=== PATIENT | female | born 1965 | race Caucasian/White ===

== ENCOUNTER 2019-04-08 18:56 | Inpatient (IN) ==
[2019-04-08 19:34] LABS: Basophils % 0.4 %; Hematocrit 39.6 % (35.3-44.9); Hemoglobin 13.5 g/dL (11.5-15.4); Immature Granulocytes % 0.3 % (0-4); Lymphocytes # 2.3 K/mcL (0.6-4.6); Lymphocytes % 21.6 %; Mean Corpuscular HGB Conc 34.1 g/dL (31.6-35.5); Mean Corpuscular Volume 90.8 fL (83.0-100.0); Monocytes # 0.7 K/mcL (0.0-1.3); Monocytes % 6.1 %; Neutrophils # 7.7 K/mcL (1.6-8.9); Platelet Count 266 K/mcL (140-400); Red Blood Count 4.36 M/mcL (3.82-4.97); Red Cell Distribution Width 13.2 % (11.5-14.5); Segmented Neutrophils % 71.6 %; White Blood Count 10.8 K/mcL (4.3-11.1)
[2019-04-08 19:51] LABS: Acetaminophen < 10 mcg/mL (10-20); BUN/Creatinine Ratio 14 (6-26); Blood Urea Nitrogen 13 mg/dL (6-20); Calcium 9.9 mg/dL (8.6-10.3); Carbon Dioxide 29 mEq/L (23-29); Chloride 106 mEq/L (98-107); Ethanol < 10 mg/dL (Less than 10); Glucose 137 mg/dL (70-105); Osmolality,Calculated 292 (280-300); Potassium 3.7 mEq/L (3.5-5.1); Salicylate < 2.5 mg/dL (15.0-30.0); Sodium 140 mEq/L (136-145); eGFR For African Americans > 60 (> 60); eGFR For Non-African Americans > 60 (> 60)
[2019-04-08 20:40] LABS: Bilirubin,Urine Negative (Negative); Blood,Urine Negative (Negative); Clarity,Urine Clear (Clear); Color,Urine Yellow (Yellow); Glucose,Urine (UA) Normal (Normal); Ketones,Urine Negative (Negative); Leukocyte Esterase,Urine Negative (Negative); Nitrite,Urine Negative (Negative); PH,Urine 5.5 pH Units (5.0-8.0); Protein,Urine Negative (Neg-Trace); Specific Gravity,Urine 1.015 (1.010-1.025); Urobilinogen,Urine Normal (Normal)
[2019-04-08 20:48] LABS: Amphetamine Screen,Urine Negative ng/mL (Cutoff=1000); Barbiturate Screen,Urine Negative ng/mL (Cutoff=200); Benzodiazepines Screen,Urine Negative ng/mL (Cutoff=200); Cannabinoid Screen,Urine Negative ng/mL (Cutoff = 50); Cocaine Screen,Urine Negative ng/mL (Cutoff= 300); Opiate Screen,Urine Negative ng/mL (Cutoff=300); Phencyclidine Screen,Urine Negative ng/mL (Cutoff=25)
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
[2019-04-08] MEDS ORDERED: *HR* LORazepam 2 MG/ML VIAL IM PRN (23:06)
[2019-04-08] MEDS ORDERED: Mag Hydrox/Al Hydrox/Simeth 30 ML UDC PO PRN (23:06)
[2019-04-08] MEDS ORDERED: *HR* LORazepam 1 MG TABLET PO PRN (23:06)
[2019-04-08] MEDS ORDERED: Haloperidol Lactate 5 MG/ML VIAL IM PRN (23:06)
[2019-04-08] MEDS ORDERED: MOM Conc 10 ML UD.LIQ PO PRN (23:06)
[2019-04-08] MEDS ORDERED: Acetaminophen 325 MG TABLET PO PRN (23:06)
[2019-04-09] MEDS: hydrOXYzine pamoate 25 MG CAPSULE PO PRN ×2 (02:48→21:15)
[2019-04-09] MEDS: traZODone 50 MG TABLET PO PRN ×2 (02:48→21:15)
[2019-04-09] MEDS ORDERED: *HR* LORazepam Oral Conc 2 MG/ML PO SCH (10:15)
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
[2019-04-09] MEDS: *HR* LORazepam 1 MG TABLET PO SCH ×3 (11:13→21:15)
[2019-04-09 14:32] LABS: Estimated Average Glucose 126 mg/dl
[2019-04-09] MEDS: cloZAPine 100 MG TABLET PO SCH (21:15)
[2019-04-10] MEDS: *HR* LORazepam 1 MG TABLET PO SCH ×3 (08:57→20:56)
[2019-04-10] MEDS: (Valbenazine Tosylate [Ingrezza] 80 MG) PO SCH (09:00)
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
[2019-04-10] MEDS: cloZAPine 100 MG TABLET PO SCH (21:18)
[2019-04-11] MEDS: *HR* LORazepam 1 MG TABLET PO SCH ×3 (09:23→22:15)
[2019-04-11] MEDS: (Valbenazine Tosylate [Ingrezza] 80 MG) PO SCH (09:23)
--- NOTE | 2019-04-11 09:34 | Psychiatry Progress Note ---
Date of Encounter: 04/11/19 Time of Encounter: 08:40 Subjective Interval history: Patient continues to be very psychotic and confused. She continues to think that there are fires on around her and that her life is in danger. She is paranoid and watchful. She is responding to internal stimuli. She is not caring for her ADLs. She needs encouragement to eat. After each dose of Ativan she does have a slight improvement though it then wanes as the Ativan goes out of her system. She is tolerating clozapine. No further falls. Review of Systems Psychiatric: Reports: anxiety, abnormal sleep pattern, auditory hallucinations, visual hallucinations. Denies: suicidal ideation, homicidal ideation, anhedonia Results - Vital Signs Vital Signs: Temp Pulse Resp BP Pulse Ox 97.9 F 92 14 96/64 95 04/11/19 09:00 04/11/19 09:00 04/11/19 09:00 04/11/19 09:00 04/11/19 09:00 Assessment and Plan (1) Schizophrenia Current visit: Yes Status: Acute Plan: Continue hospitalization, Close observation, Suicide Precautions per unit protocol, Encourage participation in unit milieu, Group Therapy, Monitor sleep, Monitor appetite Additional Plan: Continue current medications. Consider increase in Ativan given that she still has catatonic symptoms in the seemed to get worse as the Ativan wears off. Encourage group attendance. 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 You have an appointment scheduled for Monday, April 22, 2019 at 2:[address] Vy Pacheco for medication management. Please contact the office at least 24 hours in advance if you are unable to keep your appointment(s). ) Ruddy Hernandez MD [Partnered Physician] - Psychiatry Exam - Constitutional Vitals: Temp Pulse Resp BP Pulse Ox 97.9 F 92 14 96/64 95 04/11/19 09:00 04/11/19 09:00 04/11/19 09:00 04/11/19 09:00 04/11/19 09:00 General appearance: age & developmentally appropriate, disheveled - Musculoskeletal Gait: slow Station: stooped Strength & Tone: mild weakness - Psychiatric Patient Orientation: Yes Person, Yes Time, Yes Place Level of alertness: Alert Behavior: guarded, suspicious, withdrawn Psychomotor activity: Slowed Eye Contact: Minimal Contact Mood Description: Anxious Patient description of mood: "I do not know Affect description: flat Speech Volume: Soft/Quiet, Whispering Speech pattern: slowed, limited, impoverished, monotone Language & Vocabulary: consistent with education Thought Process: Thought Blocking Thought Content: Yes Paranoid delusion Perceptual Disturbances: Yes Auditory hallucinations, Yes Visual hallucinations Attention Span Ability: Unable to Focus, Unable to Sustain Attention Memory Description: Immediate Impaired, Recent Intact, Remote Intact Patient Reliability: Questionable Historian Fund of knowledge: Yes average Intelligence Estimate: Average Judgment: Limited Insight: Minimal
[2019-04-11] MEDS: cloZAPine 100 MG TABLET PO SCH (22:16)
[2019-04-12] MEDS: *HR* LORazepam 1 MG TABLET PO SCH ×3 (07:44→20:57)
[2019-04-12] MEDS: (Valbenazine Tosylate [Ingrezza] 80 MG) PO SCH (09:05)
--- NOTE | 2019-04-12 09:28 | Psychiatry Progress Note ---
Date of Encounter: 04/12/19 Time of Encounter: 08:40 Subjective Interval history: Patient is slightly less delayed in her responses and has less posturing since her Ativan. She continues to be paranoid and psychotic. She continues to not care for her ADLs. She requires encouragement. She is tolerating medications. She is attending some groups though not participating. Now that some of the posturing from the catatonia is improving it has become apparent that she does have tardive dyskinesia for which she is being treated with resident. Her primary symptoms seem to be around truncal movements in her shoulders which I would rate as 3 moderate her overall abnormality of movements is 2 mild incapacitation is 0, patient's awareness is 2 she is aware with only mild distress this gives her an overall score of 6 Review of Systems Psychiatric: Reports: anxiety, abnormal sleep pattern, auditory hallucinations, visual hallucinations. Denies: suicidal ideation, homicidal ideation, anhedonia Results - Vital Signs Vital Signs: Temp Pulse Resp BP Pulse Ox 98.8 F 90 16 102/71 99 04/11/19 20:02 04/11/19 20:02 04/11/19 20:02 04/11/19 20:02 04/11/19 20:02 Assessment and Plan (1) Schizophrenia Current visit: Yes Status: Acute Plan: Continue hospitalization, Close observation, Suicide Precautions per unit protocol, Encourage participation in unit milieu, Group Therapy, Monitor sleep, Monitor appetite Additional Plan: Patient does have some tardive dyskinesia which is being addressed with anger as a. Antipsychotics to cause tardive dyskinesia however in this case her need for the medications outweighs the risk of worsening tardive dyskinesia. Additionally cause a pain is the medication of choice for an antipsychotic when the patient has tardive dyskinesia so this is good that she is arty on it. We will continue current dose. If she does not continue to improve may need to increase this. Continue Ativan for the time being. As catatonia improved as he may be able to decrease this. 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 You have an appointment scheduled for Monday, April 22, 2019 at 2:[address] Vy Pacheco for medication management. Please contact the office at least 24 hours in advance if you are unable to keep your appointment(s). ) Rdudy Hernandez MD [Partnered Physician] - Psychiatry Exam - Constitutional Vitals: Temp Pulse Resp BP Pulse Ox 98.8 F 90 16 102/71 99 04/11/19 20:02 04/11/19 20:02 04/11/19 20:02 04/11/19 20:02 04/11/19 20:02 General appearance: age & developmentally appropriate, disheveled - Musculoskeletal Gait: slow Station: posturing (Last) Strength & Tone: other (Truncal tardive dyskinesia) - Psychiatric Patient Orientation: Yes Person, Yes Time, Yes Place Level of alertness: Alert Behavior: guarded, withdrawn Psychomotor activity: Catatonic (Improving) Eye Contact: Fleeting Contact Mood Description: Depressed Patient description of mood: Sad Affect description: flat Speech Volume: Whispering Speech pattern: limited, impoverished, other (Delayed) Language & Vocabulary: consistent with education Thought Process: Thought Blocking Thought Content: Yes Paranoid delusion Perceptual Disturbances: Yes Auditory hallucinations, Yes Visual hallucinations Attention Span Ability: Unable to Focus, Unable to Sustain Attention Memory Description: Immediate Impaired, Recent Intact, Remote Intact Patient Reliability: Questionable Historian Fund of knowledge: Yes average Intelligence Estimate: Average Judgment: Poor Insight: None
[2019-04-12] MEDS: hydrOXYzine pamoate 25 MG CAPSULE PO PRN (20:55)
[2019-04-12] MEDS: cloZAPine 100 MG TABLET PO SCH (20:55)
[2019-04-12] MEDS: traZODone 50 MG TABLET PO PRN (20:55)
[2019-04-13] MEDS: (Valbenazine Tosylate [Ingrezza] 80 MG) PO SCH (08:02)
[2019-04-13] MEDS: *HR* LORazepam 1 MG TABLET PO SCH (08:03)
--- NOTE | 2019-04-13 11:04 | Psychiatry Progress Note ---
Date of Encounter: 04/13/19 Time of Encounter: 09:40 Subjective Interval history: Patient is no longer having delusions about things being on fire but she continues to have auditory hallucinations which tell her she is going to hell. She is still somewhat slowed in her responses but much better than when she first arrived. She has stiffness in her neck and some cogwheeling in her upper extremities. Her truncal tardive dyskinesia is worse since her and grandson has apparently not been given although her family did not bring it in apparently nursing took it to the pharmacy instead of putting into her mental box. She is eating and her hygiene is improving. She is still withdrawn. Review of Systems Psychiatric: Reports: anxiety, abnormal sleep pattern, auditory hallucinations, visual hallucinations. Denies: suicidal ideation, homicidal ideation, anhedonia Results - Vital Signs Vital Signs: Temp Pulse Resp BP Pulse Ox 96.3 F L 90 14 100/71 98 04/13/19 09:00 04/13/19 09:00 04/13/19 09:00 04/13/19 09:00 04/13/19 09:00 Assessment and Plan (1) Schizophrenia Current visit: Yes Status: Acute Plan: Continue hospitalization, Close observation, Suicide Precautions per unit protocol, Encourage participation in unit milieu, Group Therapy, Monitor sleep, Monitor appetite Additional Plan: Her catatonic symptoms have improved slightly and she is having some sedation with Ativan so we will decrease this to 0.5 mg by mouth 3 times a day. She does have some cogwheeling so will schedule Cogentin 1 mg by mouth twice a day. She will now start getting her anger is a to help with the tardive dyskinesia symptoms. 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 You have an appointment scheduled for Monday, April 22, 2019 at 2:[address] Vy Pacheco for medication management. Please contact the office at least 24 hours in advance if you are unable to keep your appointment(s). ) Ruddy Hernandez MD [Partnered Physician] - Psychiatry Exam - Constitutional Vitals: Temp Pulse Resp BP Pulse Ox 96.3 F L 90 14 100/71 98 04/13/19 09:00 04/13/19 09:00 04/13/19 09:00 04/13/19 09:00 04/13/19 09:00 General appearance: age & developmentally appropriate, disheveled - Musculoskeletal Gait: slow, shuffling Station: stooped Strength & Tone: mild weakness, cog wheel - Psychiatric Patient Orientation: Yes Person, Yes Time, Yes Place, Yes Circumstance Level of alertness: Alert Behavior: guarded, suspicious, withdrawn Psychomotor activity: Abnormal movements Eye Contact: Minimal Contact Mood Description: Depressed Patient description of mood: Better Affect description: blunted Speech Volume: Soft/Quiet Speech pattern: impoverished Language & Vocabulary: consistent with education Thought Process: Thought Blocking Thought Content: No Suicidal ideation, No Homicidal ideation, Yes Paranoid delusion Perceptual Disturbances: Yes Auditory hallucinations, Yes Visual hallucinations Attention Span Ability: Unable to Focus, Unable to Sustain Attention Memory Description: Grossly Intact Patient Reliability: Reliable Historian Fund of knowledge: Yes abstraction ability, Yes aware of current events Intelligence Estimate: Average Judgment: Limited Insight: Minimal
[2019-04-13] MEDS: *HR* LORazepam 0.5 MG TABLET PO SCH ×2 (15:05→20:44)
[2019-04-13] MEDS: cloZAPine 100 MG TABLET PO SCH (20:18)
[2019-04-13] MEDS: traZODone 50 MG TABLET PO PRN (20:43)
[2019-04-14] MEDS: *HR* LORazepam 0.5 MG TABLET PO SCH ×3 (08:47→20:38)
[2019-04-14] MEDS: (Valbenazine Tosylate [Ingrezza] 80 MG) PO SCH (08:50)
[2019-04-14] MEDS: cloZAPine 100 MG TABLET PO SCH (20:38)
[2019-04-14] MEDS: traZODone 50 MG TABLET PO PRN (20:38)
[2019-04-14] MEDS: hydrOXYzine pamoate 25 MG CAPSULE PO PRN (20:38)
--- NOTE | 2019-04-15 07:51 | Psychiatry Progress Note ---
Date of Encounter: 04/14/19 Time of Encounter: 12:00 Subjective Interval history: Patient continues to report auditory hallucinations telling her that she should go to hell, that she should , and that there is fire. She is having some suicidal ideations that it better to be than to live like this. She tolerated decrease Ativan. She does try to go to groups though appears distractible. She is caring for her hygiene better and is eating better. Review of Systems Psychiatric: Reports: anxiety, abnormal sleep pattern, suicidal ideation, auditory hallucinations, visual hallucinations. Denies: homicidal ideation, anhedonia Results - Vital Signs Vital Signs: Temp Pulse Resp BP Pulse Ox 97.8 F 85 16 122/92 99 04/14/19 21:00 04/14/19 21:04/14/19 21:04/14/19 21:04/14/19 21:00 Assessment and Plan (1) Schizophrenia Current visit: Yes Status: Acute Plan: Continue hospitalization, Close observation, Suicide Precautions per unit protocol, Encourage participation in unit milieu, Group Therapy, Monitor sleep, Monitor appetite Additional Plan: Resident attempted to call her mother with no answer. We will continue to try reaching out to family. Will add Cogentin 1 twice a day for her stiffness and increased clozapine by an additional 25 every morning. Encourage group attendance. 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 You have an appointment scheduled for Monday, April 22, 2019 at 2:[address] Vy Pacheco for medication management. Please contact the office at least 24 hours in advance if you are unable to keep your appointment(s). ) Ruddy Hernandez MD [Partnered Physician] - Psychiatry Exam - Constitutional Vitals: Temp Pulse Resp BP Pulse Ox 97.8 F 85 16 122/92 99 04/14/19 21:00 04/14/19 21:04/14/19 21:00 04/14/19 21:00 04/14/19 21:00 General appearance: disheveled, thin - Musculoskeletal Gait: slow Station: stooped Strength & Tone: normal for patient - Psychiatric Patient Orientation: Yes Person, Yes Time, Yes Place, Yes Circumstance Level of alertness: Alert Behavior: restless, withdrawn Psychomotor activity: Slowed Eye Contact: Minimal Contact Mood Description: Depressed, Anxious Patient description of mood: Scared Affect description: flat Speech Volume: Soft/Quiet Speech pattern: slowed, impoverished Language & Vocabulary: consistent with education Thought Process: Thought Blocking Thought Content: Yes Suicidal ideation, Yes Preoccupation, Yes Paranoid delusion Perceptual Disturbances: Yes Auditory hallucinations, Yes Visual hallucinations Attention Span Ability: Unable to Focus, Unable to Sustain Attention Memory Description: Grossly Intact Patient Reliability: Reliable Historian Fund of knowledge: Yes abstraction ability, Yes aware of current events Intelligence Estimate: Average Judgment: Limited Insight: Minimal
--- NOTE | 2019-04-15 07:53 | Psychiatry Progress Note ---
Date of Encounter: 04/15/19 Time of Encounter: 07:30 Subjective Interval history: Patient tolerated increase clozapine. Her stiffness is less. We will consider further decreasing Ativan tomorrow. She continues to have paranoia about fires. She now thinks he might purifiers of help. She continues to have auditory hallucinations telling her to go down that she should kill herself. She is more interactive in groups with somewhat less thought blocking though still is delayed in her responses. Review of Systems Psychiatric: Reports: anxiety, abnormal sleep pattern, suicidal ideation, auditory hallucinations, visual hallucinations. Denies: homicidal ideation, anhedonia Results - Vital Signs Vital Signs: Temp Pulse Resp BP Pulse Ox 97.8 F 85 16 122/92 99 04/14/19 21:00 04/14/19 21:04/14/19 21:00 04/14/19 21:00 04/14/19 21:00 Assessment and Plan (1) Schizophrenia Current visit: Yes Status: Acute Plan: Continue hospitalization, Close observation, Suicide Precautions per unit protocol, Encourage participation in unit milieu, Group Therapy, Monitor sleep, Monitor appetite Additional Plan: Sitter further increase clozapine tomorrow, encourage group attendance, consider decrease Ativan tomorrow. 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 You have an appointment scheduled for Monday, April 22, 2019 at 2:[address] Vy Pacheco for medication management. Please contact the office at least 24 hours in advance if you are unable to keep your appointment(s). ) Ruddy Hernandez MD [Partnered Physician] - Psychiatry Exam - Constitutional Vitals: Temp Pulse Resp BP Pulse Ox 97.8 F 85 16 122/92 99 04/14/19 21:00 04/14/19 21:00 04/14/19 21:04/14/19 21:04/14/19 21:00 General appearance: age & developmentally appropriate, disheveled, thin - Musculoskeletal Gait: slow Station: stooped Strength & Tone: mild weakness - Psychiatric Patient Orientation: Yes Person, Yes Time, Yes Place, Yes Circumstance Level of alertness: Alert Behavior: suspicious, withdrawn Psychomotor activity: Slowed Eye Contact: Minimal Contact Mood Description: Depressed Patient description of mood: Sad Affect description: flat Speech Volume: Soft/Quiet Speech pattern: slowed, impoverished Language & Vocabulary: consistent with education Thought Process: Thought Blocking Thought Content: Yes Suicidal ideation, Yes Preoccupation, Yes Paranoid delusion Perceptual Disturbances: Yes Auditory hallucinations, Yes Visual hallucinations Attention Span Ability: Unable to Focus, Unable to Sustain Attention Memory Description: Grossly Intact Patient Reliability: Reliable Historian Fund of knowledge: Yes abstraction ability, Yes aware of current events Intelligence Estimate: Average Judgment: Limited Insight: Minimal
[2019-04-15] MEDS: (Valbenazine Tosylate [Ingrezza] 80 MG) PO SCH (09:11)
[2019-04-15] MEDS: cloZAPine 25 MG TABLET PO SCH (09:11)
[2019-04-15] MEDS: *HR* LORazepam 0.5 MG TABLET PO SCH ×3 (09:11→21:46)
[2019-04-15] MEDS: hydrOXYzine pamoate 25 MG CAPSULE PO PRN (21:46)
[2019-04-15] MEDS: traZODone 50 MG TABLET PO PRN (21:46)
[2019-04-15] MEDS: cloZAPine 100 MG TABLET PO SCH (21:46)
[2019-04-16] MEDS: *HR* LORazepam 0.5 MG TABLET PO SCH ×3 (08:31→20:46)
[2019-04-16] MEDS: cloZAPine 25 MG TABLET PO SCH (08:31)
[2019-04-16] MEDS: (Valbenazine Tosylate [Ingrezza] 80 MG) PO SCH (08:42)
[2019-04-16 12:14] LABS: Basophils % 0.4 %; Hematocrit 39.2 % (35.3-44.9); Hemoglobin 13.1 g/dL (11.5-15.4); Immature Granulocytes % 0.4 % (0-4); Lymphocytes # 1.8 K/mcL (0.6-4.6); Lymphocytes % 15.6 %; Mean Corpuscular HGB Conc 33.4 g/dL (31.6-35.5); Mean Corpuscular Hemoglobin 30.7 pg (28.0-33.3); Mean Corpuscular Volume 91.8 fL (83.0-100.0); Mean Platelet Volume 10.7 fL (9.4-12.4); Monocytes # 0.8 K/mcL (0.0-1.3); Neutrophils # 8.7 K/mcL (1.6-8.9); Platelet Count 277 K/mcL (140-400); Red Blood Count 4.27 M/mcL (3.82-4.97); Red Cell Distribution Width 13.2 % (11.5-14.5); Segmented Neutrophils % 76.6 %; White Blood Count 11.4 K/mcL (4.3-11.1)
--- NOTE | 2019-04-16 12:47 | Psychiatry Progress Note ---
Date of Encounter: 04/16/19 Time of Encounter: 12:42 Subjective Interval history: Client reports she is doing better but still has some paranoia. Thinks other people are talking about her. Has some insight that this is a symptom of her illness but is still bothered by it. Some AH but client feels like AH are just her thoughts that others are talking about her and are not genuine AH. She has some thought blocking but not severe. It seems like this symptom has improved. Pleasant. Denies SI and reports her mood has improved. Attending groups. Eating and sleeping well. Parents supportive but she lives alone. Does not feel ready to go back to her apartment yet. Was hallucinating that her apartment was on fire prior to admission and she is still somewhat focused on this. EPS has improved but still has noticeable side effects to antipsychotic. Will not make any further adjustments today. Likely just needs more time for meds to work. CBC drawn this morning but labs not back yet. Review of Systems Constitutional: Denies: fever, chills, weakness, weight change Eyes: Denies: eye pain, vision change Ears, Nose, Throat: Denies: ear pain, throat pain, dental pain, hearing loss, congestion Cardiovascular: Denies: chest pain, palpitations, dyspnea on exertion Respiratory: Denies: cough, dyspnea, wheezes Gastrointestinal: Denies: abdominal pain, nausea, vomiting, diarrhea, constipation Musculoskeletal: Denies: joint swelling, joint pain Neurological: Denies: headache, weakness, numbness, memory loss Psychiatric: Reports: anxiety, abnormal sleep pattern, suicidal ideation, auditory hallucinations, visual hallucinations. Denies: homicidal ideation, anhedonia Results - Vital Signs Vital Signs: Temp Pulse Resp BP Pulse Ox 98.5 F 106 18 113/78 98 04/16/19 09:00 04/16/19 09:00 04/16/19 09:00 04/16/19 09:00 04/16/19 09:00 - Labs Labs: Laboratory Results - last 24 hr 04/16/19 08:40 WBC 11.4 H RBC 4.27 Hgb 13.1 Hct 39.2 MCV 91.8 MCH 30.7 MCHC 33.4 RDW 13.2 Plt Count 277 MPV 10.7 Immature Gran % 0.4 Seg Neutrophils % 76.6 Lymphocytes % 15.6 Monocytes % 7.0 Eosinophils % 0.0 Basophils % 0.4 Neutrophils # 8.7 Lymphocytes # 1.8 Monocytes # 0.8 Eosinophils # 0.0 Basophils # 0.0 Assessment and Plan (1) Schizophrenia Current visit: Yes Status: Acute Plan: Continue hospitalization, Close observation, Suicide Precautions per unit protocol, Encourage participation in unit milieu, Group Therapy, Monitor sleep, Monitor appetite Risks, benefits, side effects, alternatives discussed w/pt: Yes Patient agreeable to treatment: Yes Qualifiers: 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 You have an appointment scheduled for Monday, April 22, 2019 at 2:[address] Vy Pacheco for medication management. Please contact the office at least 24 hours in advance if you are unable to keep your appointment(s). ) Ruddy Hernandez MD [Partnered Physician] - Psychiatry Exam - Constitutional Vitals: Temp Pulse Resp BP Pulse Ox 98.5 F 106 18 113/78 98 04/16/19 09:00 04/16/19 09:00 04/16/19 09:00 04/16/19 09:00 04/16/19 09:00 General appearance: age & developmentally appropriate, well-groomed, well- nourished - Musculoskeletal Gait: normal Station: relaxed Strength & Tone: normal for patient - Psychiatric Patient Orientation: Yes Person, Yes Time, Yes Place Level of alertness: Alert Behavior: calm, cooperative Psychomotor activity: Increased Eye Contact: Maintains Eye Contact Mood Description: Anxious Affect description: full range Speech Volume: Normal Speech pattern: normal rate, normal rhythm, normal tone, fluent, spontaneous Language & Vocabulary: consistent with education Thought Process: Thought Blocking Thought Content: No Suicidal ideation, No Homicidal ideation, Yes Paranoid delusion Perceptual Disturbances: Yes Auditory hallucinations Attention Span Ability: Capable of Focused Attention Memory Description: Grossly Intact Patient Reliability: Reliable Historian Fund of knowledge: Yes abstraction ability Intelligence Estimate: Average Judgment: Fair Insight: Partial
[2019-04-16] MEDS: cloZAPine 100 MG TABLET PO SCH (20:45)
[2019-04-16] MEDS: hydrOXYzine pamoate 25 MG CAPSULE PO PRN (20:46)
[2019-04-16] MEDS: traZODone 50 MG TABLET PO PRN (20:46)
[2019-04-17] MEDS: cloZAPine 25 MG TABLET PO SCH (08:52)
[2019-04-17] MEDS: *HR* LORazepam 0.5 MG TABLET PO SCH ×3 (08:52→21:02)
[2019-04-17] MEDS: (Valbenazine Tosylate [Ingrezza] 80 MG) PO SCH (08:53)
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
[2019-04-17] MEDS: traZODone 50 MG TABLET PO PRN (21:02)
[2019-04-17] MEDS: cloZAPine 100 MG TABLET PO SCH (21:02)
[2019-04-17] MEDS: hydrOXYzine pamoate 25 MG CAPSULE PO PRN (21:02)
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
[2019-04-18] MEDS: *HR* LORazepam 0.5 MG TABLET PO SCH ×3 (09:50→20:53)
[2019-04-18] MEDS: cloZAPine 25 MG TABLET PO SCH (09:50)
[2019-04-18] MEDS: (Valbenazine Tosylate [Ingrezza] 80 MG) PO SCH (09:52)
[2019-04-18] MEDS: cloZAPine 100 MG TABLET PO SCH (20:52)
[2019-04-19] MEDS: *HR* LORazepam 0.5 MG TABLET PO SCH ×3 (08:45→20:24)
[2019-04-19] MEDS: cloZAPine 25 MG TABLET PO SCH (08:45)
[2019-04-19] MEDS: (Valbenazine Tosylate [Ingrezza] 80 MG) PO SCH (08:45)
--- NOTE | 2019-04-19 09:18 | Psychiatry Progress Note ---
Date of Encounter: 04/19/19 Time of Encounter: 09:13 Subjective Interval history: Had a great day yesterday. Client is an avid sports fan and she was preoccupied with the [employer] football game all day. Staff report she really enjoyed herself. According to staff client looks more relaxed, less stressed, and less rigid. On eval today she has fewer signs of EPS. Client also reports the discomfort in her neck has improved. Suspect this will only continue to get better. She has been out of her room interacting with staff and peers. Her paranoia has improved and she is initiating conversations with others. Her response time in conversations has also improved. Likely at or near her baseline. Will plan to discharge tomorrow. Prefer she be discharged on a weekday so she can touch base with the social problems specialist about her next outpatient appointment and so that outpatient services will be open and available to her in case she has any problems after returning home. Review of Systems Constitutional: Denies: fever, chills, weakness, weight change Eyes: Denies: eye pain, vision change Ears, Nose, Throat: Denies: ear pain, throat pain, dental pain, hearing loss, congestion Cardiovascular: Denies: chest pain, palpitations, dyspnea on exertion Respiratory: Denies: cough, dyspnea, wheezes Gastrointestinal: Denies: abdominal pain, nausea, vomiting, diarrhea, constipation Musculoskeletal: Denies: joint swelling, joint pain Neurological: Denies: headache, weakness, numbness, memory loss Psychiatric: Reports: anxiety, abnormal sleep pattern, suicidal ideation, auditory hallucinations, visual hallucinations. 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 You have an appointment scheduled for Monday, April 22, 2019 at 2:[address] Vy Pacheco for medication management. Please contact the office at least 24 hours in advance if you are unable to keep your appointment(s). ) Ruddy Hernandez MD [Partnered Physician] - Psychiatry Exam - Constitutional Vitals: Temp Pulse Resp BP Pulse Ox 98.6 F 97 20 116/95 98 04/18/19 20:08 04/18/19 20:08 04/18/19 20:08 04/18/19 20:08 04/18/19 20:08 General appearance: age & developmentally appropriate, well-groomed, well- nourished - Musculoskeletal Gait: slow Station: stooped Strength & Tone: normal for patient - Psychiatric Patient Orientation: Yes Person, Yes Time, Yes Place Level of alertness: Alert Behavior: calm, cooperative Psychomotor activity: Increased Eye Contact: Maintains Eye Contact Mood Description: Euthymic/stable Affect description: congruent with mood, full range Speech Volume: Normal Speech pattern: normal rate, normal rhythm, normal tone, fluent, spontaneous Language & Vocabulary: consistent with education Thought Process: Linear Thought Content: No Suicidal ideation, No Homicidal ideation, No Overt delusions Perceptual Disturbances: No Auditory hallucinations, No Visual hallucinations Attention Span Ability: Capable of Focused Attention Memory Description: Grossly Intact Patient Reliability: Reliable Historian Fund of knowledge: Yes abstraction ability, Yes aware of current events Intelligence Estimate: Average Judgment: Fair Insight: Partial
[2019-04-19] MEDS: cloZAPine 100 MG TABLET PO SCH (20:24)
[2019-04-20] MEDS: cloZAPine 25 MG TABLET PO SCH (09:02)
[2019-04-20] MEDS: *HR* LORazepam 0.5 MG TABLET PO SCH (09:02)
[2019-04-20] MEDS: (Valbenazine Tosylate [Ingrezza] 80 MG) PO SCH (09:05)
[2019-04-20 09:40] VITALS: BP 137/80
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
== END 2019-04-20 15:10 | disposition home or self-care (01) | DRG 885 ==
LOC: EMEROOARM 18:56 → 1ANU 23:04 → SUATTDRO 23:04 → 1ANU 23:15
PROVIDERS: ADMIT Psychiatry & Neurology Psychiatry; ATTEND Psychiatry & Neurology Psychiatry

== ENCOUNTER 2020-02-10 20:58 | Inpatient (IN) ==
[2020-02-10 22:27] LABS: Basophils % 0.1 %; Hematocrit 37.9 % (35.3-44.9); Immature Granulocytes % 1.4 % (0-4); Lymphocytes # 1.1 K/mcL (0.6-4.6); Lymphocytes % 4.9 %; Mean Corpuscular HGB Conc 31.7 g/dL (31.6-35.5); Mean Corpuscular Hemoglobin 30.1 pg (28.0-33.3); Mean Platelet Volume 10.5 fL (9.4-12.4); Monocytes # 1.5 K/mcL (0.0-1.3); Monocytes % 6.8 %; Neutrophils # 19.1 K/mcL (1.6-8.9); Platelet Count 280 K/mcL (140-400); Red Blood Count 3.99 M/mcL (3.82-4.97); Red Cell Distribution Width 13.7 % (11.5-14.5); Segmented Neutrophils % 86.8 %
[2020-02-10 22:36] LABS: Bacteria,Urine Few per hpf (None-Few); Bilirubin,Urine Negative (Negative); Blood,Urine Moderate (Negative); Clarity,Urine Turbid (Clear); Color,Urine Yellow (Yellow); Glucose,Urine (UA) Normal (Normal); Ketones,Urine Trace mg/dL (Negative); Leukocyte Esterase,Urine Large (Negative); Mucus,Urine Moderate per lpf (None-Few); Nitrite,Urine Negative (Negative); Protein,Urine 100 mg/dL (Neg-Trace); RBC,Urine 50-100 per hpf (0-3); Specific Gravity,Urine 1.017 (1.010-1.025); Squamous Epithelial Cell,Urine Moderate per hpf (None-Few); Urobilinogen,Urine Normal (Normal); WBC,Urine TNTC per hpf (0-3)
[2020-02-10 22:39] LABS: INR 1.2; Prothrombin Time 14.1 Seconds (9.4-12.1)
[2020-02-10 22:42] LABS: Amphetamine Screen,Urine Negative ng/mL (Cutoff=1000); Barbiturate Screen,Urine Negative ng/mL (Cutoff=200); Benzodiazepines Screen,Urine Negative ng/mL (Cutoff=200); Cannabinoid Screen,Urine Negative ng/mL (Cutoff = 50); Cocaine Screen,Urine Negative ng/mL (Cutoff= 300); Opiate Screen,Urine Negative ng/mL (Cutoff=300); Phencyclidine Screen,Urine Negative ng/mL (Cutoff=25)
[2020-02-10 22:42] LABS: Activated Partial Thrombo Time 31.8 Seconds (26.0-36.0)
[2020-02-10] MEDS ORDERED: cefTRIAXone 1,000 MG in Water for inj. (sterile) 10 ML IVP ONE (22:49)
[2020-02-10 22:50] LABS: Alanine Aminotransferase 18 Units/L (7-52); Albumin 3.5 g/dL (3.5-5.7); Albumin/Globulin Ratio 1.3 (1.1-2.2); Alkaline Phosphatase 108 Units/L (34-104); Aspartate Amino Transferase 14 Units/L (13-39); BUN/Creatinine Ratio 19 (6-26); Bilirubin,Direct 0.2 mg/dL (0.0-0.2); Bilirubin,Indirect 0.5 mg/dL (0.0-1.0); Bilirubin,Total 0.7 mg/dL (0.3-1.0); Blood Urea Nitrogen 28 mg/dL (6-20); Calcium 8.9 mg/dL (8.6-10.3); Carbon Dioxide 26 mEq/L (23-29); Chloride 115 mEq/L (98-107); Creatine Kinase 50 Units/L (30-223); Ethanol < 10 mg/dL (Less than 10); Globulin 2.6 g/dL (2.4-3.5); Glucose 153 mg/dL (70-105); Lipase 48 Units/L (11-82); Osmolality,Calculated 321 (280-300); Potassium 3.4 mEq/L (3.5-5.1); Sodium 151 mEq/L (136-145); Total Protein 6.1 g/dL (6.4-8.9); Troponin I < 0.03 ng/mL (< 0.04); eGFR For African Americans 46 (> 60); eGFR For Non-African Americans 38 (> 60)
[2020-02-10 23:03] LABS: Thyroid Stimulating Hormone 0.201 mcIU/mL (0.340-5.600)
[2020-02-10] MEDS ORDERED: 0.9 % Sodium Chloride 1,000 ML IVC ONE (23:54)
[2020-02-11] MEDS ORDERED: 0.9 % Sodium Chloride 1,000 ML IVC SCH (01:30)
[2020-02-11] MEDS ORDERED: Naloxone 0.4 MG/ML INJ IVP PRN (01:30)
[2020-02-11] MEDS ORDERED: *HR* LORazepam 1 MG TABLET PO PRN (02:25)
[2020-02-11] MEDS: *HR* Heparin 5,000 UNIT/ML VIAL SQ SCH ×3 (05:42→21:44)
[2020-02-11 07:33] LABS: Hematocrit 36.7 % (35.3-44.9); Hemoglobin 11.4 g/dL (11.5-15.4); Mean Corpuscular HGB Conc 31.1 g/dL (31.6-35.5); Mean Corpuscular Hemoglobin 30.4 pg (28.0-33.3); Mean Corpuscular Volume 97.9 fL (83.0-100.0); Platelet Count 264 K/mcL (140-400); Red Blood Count 3.75 M/mcL (3.82-4.97); Red Cell Distribution Width 13.9 % (11.5-14.5); White Blood Count 23.8 K/mcL (4.3-11.1)
[2020-02-11 07:47] LABS: Calcium 8.1 mg/dL (8.6-10.3); Magnesium 1.9 mg/dL (1.6-2.6); Phosphorous 2.5 mg/dL (2.7-4.5); Potassium 3.5 mEq/L (3.5-5.1)
[2020-02-11 08:11] LABS: Lymphocytes # 1.7 K/mcL (0.6-4.6); Monocytes # 0.2 K/mcL (0.0-1.3); Neutrophils # 21.9 K/mcL (1.6-8.9)
[2020-02-11 08:12] LABS: Platelet Estimate Normal (Normal); Toxic Granulation Present (Not Present)
[2020-02-11 09:10] LABS: Estimated Average Glucose 128 mg/dl; Hemoglobin A1C 6.1 %
[2020-02-11] MEDS: Piperacillin/Tazobactam 3.375 GM in 0.9 % Sodium Chloride Mini Bag 100 ML IVPB SCH ×3 (10:00→23:47)
[2020-02-11 14:40] LABS: Calcium 8.8 mg/dL (8.6-10.3); Potassium 3.3 mEq/L (3.5-5.1)
[2020-02-11] MEDS ORDERED: Atropine Sulfate 1% 40 DROP/2 ML BOTTLE SL PRN (15:11)
[2020-02-11] MEDS: (Valbenazine Tosylate [Ingrezza] 80 MG) PO SCH (15:50)
[2020-02-11] MEDS: D5% in 0.45% NACL 1,000 ML IVC SCH (16:09)
[2020-02-11] MEDS ORDERED: cefTRIAXone 1,000 MG in Water for inj. (sterile) 10 ML IVP SCH (18:00)
[2020-02-11 20:01] LABS: Calcium 8.4 mg/dL (8.6-10.3); Potassium 3.5 mEq/L (3.5-5.1)
[2020-02-12] MEDS: *HR* Heparin 5,000 UNIT/ML VIAL SQ SCH ×3 (05:33→20:30)
[2020-02-12 07:54] LABS: Calcium 7.9 mg/dL (8.6-10.3); Magnesium 2.1 mg/dL (1.6-2.6); Phosphorous 2.6 mg/dL (2.7-4.5); Potassium 3.5 mEq/L (3.5-5.1)
[2020-02-12 08:27] LABS: Basophils % 0.2 %; Hematocrit 36.7 % (35.3-44.9); Hemoglobin 11.2 g/dL (11.5-15.4); Immature Granulocytes % 2.2 % (0-4); Lymphocytes # 1.8 K/mcL (0.6-4.6); Lymphocytes % 8.5 %; Mean Corpuscular HGB Conc 30.5 g/dL (31.6-35.5); Mean Corpuscular Hemoglobin 29.9 pg (28.0-33.3); Mean Corpuscular Volume 97.9 fL (83.0-100.0); Mean Platelet Volume 11.2 fL (9.4-12.4); Monocytes # 1.1 K/mcL (0.0-1.3); Monocytes % 5.5 %; Neutrophils # 17.5 K/mcL (1.6-8.9); Platelet Count 287 K/mcL (140-400); Red Blood Count 3.75 M/mcL (3.82-4.97); Red Cell Distribution Width 14.5 % (11.5-14.5); Segmented Neutrophils % 83.6 %; White Blood Count 20.9 K/mcL (4.3-11.1)
[2020-02-12] MEDS: Piperacillin/Tazobactam 3.375 GM in 0.9 % Sodium Chloride Mini Bag 100 ML IVPB SCH ×2 (09:19→23:34)
[2020-02-12] MEDS: (Valbenazine Tosylate [Ingrezza] 80 MG) PO SCH (09:28)
[2020-02-12] MEDS: D5% in 0.45% NACL 1,000 ML IVC SCH ×2 (09:45→16:43)
[2020-02-12 12:39] LABS: Adenovirus Not Detected (Not Detect); Bordetella Pertussis Not Detected (Not Detect); Chlamydophila pneumoniae Not Detected (Not Detect); Coronavirus 229E Not Detected (Not Detect); Coronavirus HKU1 Not Detected (Not Detect); Coronavirus NL63 Not Detected (Not Detect); Coronavirus OC43 Not Detected (Not Detect); Human Metapneumovirus Not Detected (Not Detect); Human Rhinovirus/Enterovirus Not Detected (Not Detect); Influenza A Subtype 2009 H1 Not Detected (Not Detect); Influenza B Not Detected (Not Detect); Mycoplasma pneumoniae Not Detected (Not Detect); Parainfluenza Virus 1 Not Detected (Not Detect); Parainfluenza Virus 2 Not Detected (Not Detect); Parainfluenza Virus 3 Not Detected (Not Detect); Parainfluenza Virus 4 Not Detected (Not Detect); Respiratory Syncytial Virus Not Detected (Not Detect)
[2020-02-12 12:40] LABS: SARS-CoV-2 Not Detected (Not Detect)
[2020-02-12 14:43] LABS: Calcium 8.4 mg/dL (8.6-10.3); Potassium 3.3 mEq/L (3.5-5.1)
[2020-02-12] MEDS ORDERED: Piperacillin/Tazobactam 3.375 GM in D5% in Water (Mini-Bag+) 100 ML IVPB SCH (16:00)
[2020-02-12 22:40] LABS: Calcium 8.3 mg/dL (8.6-10.3); Potassium 3.6 mEq/L (3.5-5.1)
[2020-02-13] MEDS: *HR* Heparin 5,000 UNIT/ML VIAL SQ SCH ×3 (06:00→21:34)
[2020-02-13] MEDS: D5% in 0.45% NACL 1,000 ML IVC SCH (06:00)
[2020-02-13 07:12] LABS: Basophils # 0.1 K/mcL (0.0-0.2); Basophils % 0.3 %; Hematocrit 39.1 % (35.3-44.9); Hemoglobin 12.1 g/dL (11.5-15.4); Immature Granulocytes % 2.9 % (0-4); Lymphocytes # 2.3 K/mcL (0.6-4.6); Lymphocytes % 11.6 %; Mean Corpuscular HGB Conc 30.9 g/dL (31.6-35.5); Mean Corpuscular Hemoglobin 30.6 pg (28.0-33.3); Mean Platelet Volume 10.6 fL (9.4-12.4); Monocytes # 0.8 K/mcL (0.0-1.3); Monocytes % 4.2 %; Neutrophils # 15.9 K/mcL (1.6-8.9); Platelet Count 293 K/mcL (140-400); Red Blood Count 3.95 M/mcL (3.82-4.97); Red Cell Distribution Width 14.5 % (11.5-14.5); White Blood Count 19.6 K/mcL (4.3-11.1)
[2020-02-13] MEDS: (Valbenazine Tosylate [Ingrezza] 80 MG) PO SCH (07:45)
[2020-02-13] MEDS ORDERED: D5% in 0.45% NACL 1,000 ML IVC SCH (07:45)
[2020-02-13] MEDS: Piperacillin/Tazobactam 3.375 GM in 0.9 % Sodium Chloride Mini Bag 100 ML IVPB SCH (07:45)
[2020-02-13 08:27] LABS: Calcium 8.4 mg/dL (8.6-10.3); Phosphorous 2.6 mg/dL (2.7-4.5); Potassium 3.7 mEq/L (3.5-5.1)
[2020-02-13] MEDS ORDERED: D5% in Water 1,000 ML IVC SCH (12:45)
[2020-02-13 13:23] LABS: Sodium, Urine 130.2 mEq/L
[2020-02-13] MEDS: *HR* Promethazine 25 MG/ML VIAL IVP PRN (16:12)
[2020-02-13] MEDS: Amoxicillin/Clavulanate 500 MG TABLET PO SCH (17:06)
[2020-02-13] MEDS: D5% in Water 1,000 ML IVC SCH (21:31)
[2020-02-14 01:45] LABS: BUN/Creatinine Ratio 7 (6-26); Basophils % 0.2 %; Blood Urea Nitrogen 8 mg/dL (6-20); Calcium 8.3 mg/dL (8.6-10.3); Carbon Dioxide 26 mEq/L (23-29); Chloride 113 mEq/L (98-107); Glucose 138 mg/dL (70-105); Hemoglobin 11.2 g/dL (11.5-15.4); Immature Granulocytes % 2.2 % (0-4); Lymphocytes # 2.3 K/mcL (0.6-4.6); Lymphocytes % 12.7 %; Mean Corpuscular HGB Conc 31.1 g/dL (31.6-35.5); Mean Corpuscular Hemoglobin 29.7 pg (28.0-33.3); Mean Corpuscular Volume 95.5 fL (83.0-100.0); Mean Platelet Volume 10.7 fL (9.4-12.4); Monocytes # 0.8 K/mcL (0.0-1.3); Monocytes % 4.6 %; Neutrophils # 14.7 K/mcL (1.6-8.9); Osmolality,Calculated 307 (280-300); Platelet Count 290 K/mcL (140-400); Red Blood Count 3.77 M/mcL (3.82-4.97); Red Cell Distribution Width 14.1 % (11.5-14.5); Segmented Neutrophils % 80.3 %; Sodium 148 mEq/L (136-145); White Blood Count 18.3 K/mcL (4.3-11.1); eGFR For African Americans > 60 (> 60); eGFR For Non-African Americans 52 (> 60)
[2020-02-14] MEDS: *HR* Heparin 5,000 UNIT/ML VIAL SQ SCH ×3 (05:42→21:40)
[2020-02-14] MEDS: Amoxicillin/Clavulanate 500 MG TABLET PO SCH ×2 (08:56→16:57)
[2020-02-14] MEDS: (Valbenazine Tosylate [Ingrezza] 80 MG) PO SCH (08:57)
[2020-02-14] MEDS: D5% in Water 1,000 ML IVC SCH (19:04)
[2020-02-15 01:44] LABS: Basophils % 0.2 %; Hematocrit 35.5 % (35.3-44.9); Hemoglobin 11.2 g/dL (11.5-15.4); Immature Granulocytes % 1.9 % (0-4); Lymphocytes # 2.9 K/mcL (0.6-4.6); Lymphocytes % 14.8 %; Mean Corpuscular HGB Conc 31.5 g/dL (31.6-35.5); Mean Corpuscular Hemoglobin 30.4 pg (28.0-33.3); Mean Corpuscular Volume 96.5 fL (83.0-100.0); Mean Platelet Volume 10.7 fL (9.4-12.4); Monocytes # 1.1 K/mcL (0.0-1.3); Monocytes % 5.5 %; Platelet Count 280 K/mcL (140-400); Red Blood Count 3.68 M/mcL (3.82-4.97); Red Cell Distribution Width 13.5 % (11.5-14.5); Segmented Neutrophils % 77.6 %; White Blood Count 19.3 K/mcL (4.3-11.1)
[2020-02-15 02:02] LABS: BUN/Creatinine Ratio 8 (6-26); Blood Urea Nitrogen 9 mg/dL (6-20); Calcium 8.5 mg/dL (8.6-10.3); Carbon Dioxide 30 mEq/L (23-29); Chloride 110 mEq/L (98-107); Glucose 115 mg/dL (70-105); Osmolality,Calculated 302 (280-300); Potassium 3.5 mEq/L (3.5-5.1); Sodium 146 mEq/L (136-145); eGFR For African Americans > 60 (> 60); eGFR For Non-African Americans 50 (> 60)
[2020-02-15] MEDS: *HR* Heparin 5,000 UNIT/ML VIAL SQ SCH ×3 (05:39→23:06)
[2020-02-15] MEDS: (Valbenazine Tosylate [Ingrezza] 80 MG) PO SCH (08:47)
[2020-02-15] MEDS: Amoxicillin/Clavulanate 500 MG TABLET PO SCH ×2 (08:47→15:52)
[2020-02-15] MEDS: D5% in Water 1,000 ML IVC SCH (15:52)
[2020-02-15] MEDS: Doxycycline 100 MG in 0.9 % Sodium Chloride Mini Bag 100 ML IVPB SCH (18:34)
[2020-02-16] MEDS ORDERED: Levalbuterol Neb 1.25 MG/3 ML ONE (04:14)
[2020-02-16] MEDS: Levalbuterol Neb 1.25 MG/3 ML IH SCH ×6 (04:26→23:54)
[2020-02-16 05:24] LABS: Basophils # 0.1 K/mcL (0.0-0.2); Basophils % 0.3 %; Hematocrit 39.6 % (35.3-44.9); Hemoglobin 12.3 g/dL (11.5-15.4); Immature Granulocytes % 1.6 % (0-4); Lymphocytes # 2.2 K/mcL (0.6-4.6); Lymphocytes % 12.6 %; Mean Corpuscular HGB Conc 31.1 g/dL (31.6-35.5); Mean Corpuscular Volume 96.6 fL (83.0-100.0); Mean Platelet Volume 11.6 fL (9.4-12.4); Monocytes # 0.9 K/mcL (0.0-1.3); Monocytes % 5.1 %; Neutrophils # 13.9 K/mcL (1.6-8.9); Platelet Count 255 K/mcL (140-400); Red Cell Distribution Width 13.3 % (11.5-14.5); Segmented Neutrophils % 80.4 %; White Blood Count 17.2 K/mcL (4.3-11.1)
[2020-02-16 05:46] LABS: BUN/Creatinine Ratio 9 (6-26); Blood Urea Nitrogen 9 mg/dL (6-20); Calcium 8.2 mg/dL (8.6-10.3); Carbon Dioxide 29 mEq/L (23-29); Chloride 105 mEq/L (98-107); Glucose 116 mg/dL (70-105); Osmolality,Calculated 292 (280-300); Potassium 3.3 mEq/L (3.5-5.1); Sodium 141 mEq/L (136-145); eGFR For African Americans > 60 (> 60); eGFR For Non-African Americans 56 (> 60)
[2020-02-16] MEDS: Doxycycline 100 MG in 0.9 % Sodium Chloride Mini Bag 100 ML IVPB SCH (05:52)
[2020-02-16] MEDS: *HR* Heparin 5,000 UNIT/ML VIAL SQ SCH ×3 (05:52→20:15)
[2020-02-16] MEDS: Amoxicillin/Clavulanate 500 MG TABLET PO SCH ×2 (08:01→16:24)
[2020-02-16] MEDS: (Valbenazine Tosylate [Ingrezza] 80 MG) PO SCH (08:01)
[2020-02-16] MEDS: D5% in Water 1,000 ML IVC SCH ×2 (16:25→16:26)
[2020-02-16] MEDS: Doxycycline 100 MG CAPSULE PO SCH (20:15)
[2020-02-17 04:08] LABS: Basophils % 0.2 %; Hematocrit 37.1 % (35.3-44.9); Hemoglobin 11.6 g/dL (11.5-15.4); Immature Granulocytes % 1.3 % (0-4); Lymphocytes # 2.6 K/mcL (0.6-4.6); Lymphocytes % 19.2 %; Mean Corpuscular HGB Conc 31.3 g/dL (31.6-35.5); Mean Corpuscular Hemoglobin 29.5 pg (28.0-33.3); Mean Corpuscular Volume 94.4 fL (83.0-100.0); Mean Platelet Volume 10.7 fL (9.4-12.4); Monocytes # 0.8 K/mcL (0.0-1.3); Monocytes % 5.7 %; Platelet Count 283 K/mcL (140-400); Red Blood Count 3.93 M/mcL (3.82-4.97); Segmented Neutrophils % 73.6 %; White Blood Count 13.6 K/mcL (4.3-11.1)
[2020-02-17] MEDS: Levalbuterol Neb 1.25 MG/3 ML IH SCH ×6 (04:13→23:07)
[2020-02-17 04:27] LABS: BUN/Creatinine Ratio 12 (6-26); Blood Urea Nitrogen 12 mg/dL (6-20); Calcium 8.6 mg/dL (8.6-10.3); Carbon Dioxide 26 mEq/L (23-29); Chloride 107 mEq/L (98-107); Glucose 107 mg/dL (70-105); Osmolality,Calculated 292 (280-300); Potassium 3.6 mEq/L (3.5-5.1); Sodium 141 mEq/L (136-145); eGFR For African Americans > 60 (> 60); eGFR For Non-African Americans 58 (> 60)
[2020-02-17] MEDS: *HR* Heparin 5,000 UNIT/ML VIAL SQ SCH ×3 (06:48→22:55)
[2020-02-17] MEDS: Doxycycline 100 MG CAPSULE PO SCH ×2 (08:54→22:54)
[2020-02-17] MEDS: Amoxicillin/Clavulanate 500 MG TABLET PO SCH ×2 (08:54→18:51)
[2020-02-17] MEDS: Acetaminophen 325 MG TABLET PO PRN (09:01)
[2020-02-17] MEDS: (Valbenazine Tosylate [Ingrezza] 80 MG) PO SCH (10:52)
[2020-02-17] MEDS: D5% in Water 1,000 ML IVC SCH ×2 (10:52→14:55)
[2020-02-17] MEDS: cloZAPine 25 MG TABLET PO SCH (22:54)
[2020-02-18 00:39] LABS: Hematocrit 36.3 % (35.3-44.9); Hemoglobin 11.6 g/dL (11.5-15.4); Mean Corpuscular Volume 93.8 fL (83.0-100.0); Mean Platelet Volume 10.8 fL (9.4-12.4); Platelet Count 294 K/mcL (140-400); Red Blood Count 3.87 M/mcL (3.82-4.97); Red Cell Distribution Width 13.1 % (11.5-14.5)
[2020-02-18 00:54] LABS: BUN/Creatinine Ratio 12 (6-26); Blood Urea Nitrogen 12 mg/dL (6-20); Calcium 8.9 mg/dL (8.6-10.3); Carbon Dioxide 29 mEq/L (23-29); Chloride 101 mEq/L (98-107); Glucose 137 mg/dL (70-105); Magnesium 1.6 mg/dL (1.6-2.6); Osmolality,Calculated 292 (280-300); Phosphorous 2.5 mg/dL (2.7-4.5); Potassium 3.3 mEq/L (3.5-5.1); Sodium 140 mEq/L (136-145); eGFR For African Americans > 60 (> 60); eGFR For Non-African Americans 58 (> 60)
[2020-02-18] MEDS: Levalbuterol Neb 1.25 MG/3 ML IH SCH ×6 (03:21→23:38)
[2020-02-18] MEDS: *HR* Heparin 5,000 UNIT/ML VIAL SQ SCH ×3 (06:04→20:24)
[2020-02-18] MEDS: cloZAPine 25 MG TABLET PO SCH ×2 (09:15→20:24)
[2020-02-18] MEDS: Doxycycline 100 MG CAPSULE PO SCH ×2 (09:22→20:24)
[2020-02-18] MEDS: Acetaminophen 325 MG TABLET PO PRN (09:27)
[2020-02-18] MEDS ORDERED: Potassium Phosphate 44 MEQ in 0.9 % Sodium Chloride 250 ML IVPB ONE (14:12)
[2020-02-18] MEDS: D5% in Water 1,000 ML IVC SCH (19:32)
[2020-02-19 01:54] LABS: Hematocrit 34.7 % (35.3-44.9); Hemoglobin 11.1 g/dL (11.5-15.4); Mean Corpuscular Hemoglobin 30.3 pg (28.0-33.3); Mean Corpuscular Volume 94.8 fL (83.0-100.0); Mean Platelet Volume 11.2 fL (9.4-12.4); Platelet Count 306 K/mcL (140-400); Red Blood Count 3.66 M/mcL (3.82-4.97); Red Cell Distribution Width 13.1 % (11.5-14.5); White Blood Count 10.7 K/mcL (4.3-11.1)
[2020-02-19 02:13] LABS: BUN/Creatinine Ratio 12 (6-26); Blood Urea Nitrogen 11 mg/dL (6-20); Calcium 9.2 mg/dL (8.6-10.3); Carbon Dioxide 27 mEq/L (23-29); Chloride 104 mEq/L (98-107); Glucose 116 mg/dL (70-105); Osmolality,Calculated 292 (280-300); Phosphorous 4.4 mg/dL (2.7-4.5); Potassium 3.7 mEq/L (3.5-5.1); Sodium 141 mEq/L (136-145); eGFR For African Americans > 60 (> 60); eGFR For Non-African Americans > 60 (> 60)
[2020-02-19] MEDS: Levalbuterol Neb 1.25 MG/3 ML IH SCH ×6 (03:17→23:59)
[2020-02-19] MEDS: *HR* Heparin 5,000 UNIT/ML VIAL SQ SCH ×3 (05:02→20:07)
[2020-02-19] MEDS: Doxycycline 100 MG CAPSULE PO SCH ×2 (07:59→20:07)
[2020-02-19] MEDS: cloZAPine 25 MG TABLET PO SCH ×2 (07:59→20:07)
[2020-02-19] MEDS: D5% in Water 1,000 ML IVC SCH ×2 (12:28→19:26)
[2020-02-20] MEDS: Levalbuterol Neb 1.25 MG/3 ML IH SCH ×6 (04:00→23:53)
[2020-02-20] MEDS: *HR* Heparin 5,000 UNIT/ML VIAL SQ SCH ×3 (05:09→20:37)
[2020-02-20] MEDS: Doxycycline 100 MG CAPSULE PO SCH ×2 (07:49→20:11)
[2020-02-20] MEDS: cloZAPine 25 MG TABLET PO SCH ×2 (07:49→20:11)
[2020-02-20 08:20] LABS: Hematocrit 37.5 % (35.3-44.9); Hemoglobin 12.1 g/dL (11.5-15.4); Mean Corpuscular HGB Conc 32.3 g/dL (31.6-35.5); Mean Corpuscular Hemoglobin 30.7 pg (28.0-33.3); Mean Corpuscular Volume 95.2 fL (83.0-100.0); Mean Platelet Volume 10.5 fL (9.4-12.4); Platelet Count 342 K/mcL (140-400); Red Blood Count 3.94 M/mcL (3.82-4.97)
[2020-02-20 08:43] LABS: BUN/Creatinine Ratio 12 (6-26); Blood Urea Nitrogen 12 mg/dL (6-20); Carbon Dioxide 26 mEq/L (23-29); Chloride 104 mEq/L (98-107); Glucose 109 mg/dL (70-105); Osmolality,Calculated 286 (280-300); Potassium 3.6 mEq/L (3.5-5.1); Sodium 138 mEq/L (136-145); eGFR For African Americans > 60 (> 60); eGFR For Non-African Americans 58 (> 60)
[2020-02-20] MEDS: *HR* Promethazine 25 MG/ML VIAL IVP PRN (20:37)
[2020-02-21] MEDS: Levalbuterol Neb 1.25 MG/3 ML IH SCH ×3 (03:38→11:03)
[2020-02-21] MEDS: *HR* Heparin 5,000 UNIT/ML VIAL SQ SCH ×3 (05:11→21:55)
[2020-02-21] MEDS: cloZAPine 25 MG TABLET PO SCH ×2 (08:05→21:56)
[2020-02-21] MEDS: Doxycycline 100 MG CAPSULE PO SCH ×2 (08:05→21:55)
[2020-02-21] MEDS ORDERED: Levalbuterol Neb 1.25 MG/3 ML IH PRN (15:12)
[2020-02-22] MEDS: *HR* Heparin 5,000 UNIT/ML VIAL SQ SCH ×3 (05:07→21:18)
[2020-02-22] MEDS: Doxycycline 100 MG CAPSULE PO SCH (08:28)
[2020-02-22] MEDS: cloZAPine 25 MG TABLET PO SCH ×2 (08:29→21:17)
[2020-02-22] MEDS: *HR* Promethazine 25 MG/ML VIAL IVP PRN ×2 (14:47→21:19)
[2020-02-23] MEDS: *HR* Heparin 5,000 UNIT/ML VIAL SQ SCH (05:24)
[2020-02-23 07:41] VITALS: BP 102/70
[2020-02-23] MEDS: cloZAPine 25 MG TABLET PO SCH (08:55)
== END 2020-02-23 13:31 | DRG 640 ==
LOC: 3BNU 20:58 → EMEROOARM 20:58 → SUATTDRO 02-11 00:45 → 3BNU 02-11 01:41 → SUATTDRO 02-12 11:01 → 3ANU 02-12 15:09
PROVIDERS: ADMIT Student in an Organized Health Care Education/Training Program; ATTEND Internal Medicine